=== PATIENT | male | born 1955 ===

== ENCOUNTER 2018-02-02 08:32 | Outpatient (CLI) | payer OTHER | END 2018-02-02 08:34 | disposition home or self-care (01) | LOC: SONOGRAMA 08:32 | DX: M75.101 Unspecified rotator cuff tear or rupture of right shoulder, not specified as traumatic (principal) ==

== ENCOUNTER → 2018-02-09 | Outpatient (CLI) | payer OTHER | END | disposition home or self-care (01) | LOC: LAB 10:30 → CERTIFICAD 10:30 | DX: Z00.00 Encounter for general adult medical examination without abnormal findings (principal) ==

== ENCOUNTER → 2019-04-08 | Outpatient (CLI) | payer OTHER | END | disposition home or self-care (01) | LOC: SONOGRAMA 11:25 | DX: R10.84 Generalized abdominal pain (principal) ==

== ENCOUNTER 2020-07-23 09:43 | Outpatient (CLI) | payer OTHER | END 2020-07-23 15:00 | disposition home or self-care (01) | LOC: PPH VACUNA 09:43 | DX: Z23 Encounter for immunization (principal) ==

== ENCOUNTER 2021-05-03 08:00 | Outpatient (CLI) | payer OTHER | END 2021-05-03 08:30 | disposition home or self-care (01) | LOC: PPH VACUNA 08:00 | PROVIDERS: ATTEND Emergency Medicine Pediatric Emergency Medicine | DX: Z23 Encounter for immunization (principal) ==

== ENCOUNTER 2021-06-11 08:55 | Outpatient (CLI) | payer OTHER | END 2021-06-11 09:05 | disposition home or self-care (01) | LOC: TOM 08:55 | PROVIDERS: ATTEND Radiology Diagnostic Radiology | DX: K57.01 Diverticulitis of small intestine with perforation and abscess with bleeding (principal) ==

== ENCOUNTER 2021-07-12 16:45 | Outpatient (CLI) | payer OTHER | END 2021-07-12 16:54 | disposition home or self-care (01) | LOC: SONOGRAMA 16:45 | PROVIDERS: ATTEND Specialist | DX: R22.1 Localized swelling, mass and lump, neck (principal) ==

== ENCOUNTER 2021-08-17 09:40 | Outpatient (CLI) | payer OTHER | END 2021-08-17 10:00 | disposition home or self-care (01) | LOC: MRI 09:40 | PROVIDERS: ATTEND Orthopaedic Surgery | DX: M66.822 Spontaneous rupture of other tendons, left upper arm (principal) | CPT/HCPCS: 73221 ==

== ENCOUNTER 2021-08-23 12:32 | Outpatient (CLI) | payer OTHER | END 2021-08-23 12:33 | disposition home or self-care (01) | LOC: LAB 12:32 | PROVIDERS: ATTEND Orthopaedic Surgery | DX: D64.89 Other specified anemias (principal); E88.89 Other specified metabolic disorders; D68.8 Other specified coagulation defects; N39.0 Urinary tract infection, site not specified; Z22.322 Carrier or suspected carrier of Methicillin resistant Staphylococcus aureus; E13.69 Other specified diabetes mellitus with other specified complication; I10 Essential (primary) hypertension; Z76.89 Persons encountering health services in other specified circumstances; I49.8 Other specified cardiac arrhythmias; Z03.818 Encounter for observation for suspected exposure to other biological agents ruled out ==

== ENCOUNTER 2021-08-27 06:36 | Day surgery (SDC) | payer OTHER | END 2021-08-27 13:00 | disposition home or self-care (01) | LOC: CIR.AMB 06:36 | PROVIDERS: ATTEND Orthopaedic Surgery | DX: S46.212A Strain of muscle, fascia and tendon of other parts of biceps, left arm, initial encounter (principal); Z20.822 Contact with and (suspected) exposure to COVID-19 ==

== ENCOUNTER 2021-11-23 08:00 | Outpatient (CLI) | payer OTHER | END 2021-11-23 08:30 | disposition home or self-care (01) | LOC: PPH VACUNA 08:00 | PROVIDERS: ATTEND Emergency Medicine Pediatric Emergency Medicine | DX: Z23 Encounter for immunization (principal) ==

== ENCOUNTER 2022-01-18 10:30 | Outpatient (CLI) | payer OTHER | END 2022-01-18 12:00 | disposition home or self-care (01) | LOC: ASH CLINIC 10:30 | PROVIDERS: ATTEND Specialist | DX: U07.1 COVID-19 (principal) ==

== ENCOUNTER 2022-03-15 09:26 | Outpatient (CLI) | payer OTHER | END 2022-03-15 09:40 | disposition home or self-care (01) | LOC: RAD 09:26 | PROVIDERS: ATTEND Orthopaedic Surgery | DX: M17.0 Bilateral primary osteoarthritis of knee (principal); M25.161 Fistula, right knee; M25.462 Effusion, left knee ==

== ENCOUNTER 2022-08-09 13:39 | Outpatient (CLI) | payer OTHER | END 2022-08-09 13:42 | disposition home or self-care (01) | LOC: RAD 13:39 | PROVIDERS: ATTEND Internal Medicine Cardiovascular Disease | DX: J20.9 Acute bronchitis, unspecified (principal) ==

== ENCOUNTER 2025-06-13 09:45 | Outpatient (CLI) | payer OTHER | END 2025-06-13 09:55 | disposition home or self-care (01) | LOC: PPH VACUNA 09:45 | PROVIDERS: ATTEND Emergency Medicine Pediatric Emergency Medicine | DX: Z23 Encounter for immunization (principal) ==

== ENCOUNTER 2025-07-15 09:15 | Outpatient (CLI) | payer OTHER | END 2025-07-15 09:17 | disposition home or self-care (01) | LOC: RAD 09:15 | DX: S90.122A Contusion of left lesser toe(s) without damage to nail, initial encounter (principal) ==